=== PATIENT | female | born 2000 | race Two or more races ===

== ENCOUNTER 2019-09-24 17:09 | Emergency (ER) | payer SELFPAY ==
[~2019-09-24] VITALS: Ht 152.4 cm; Wt 73.5 kg
[2019-09-24 17:19] VITALS: BP 155/102
[2019-09-24] MEDS ORDERED: cefTRIAXone SOD 1,000 MG VL IM ONE (17:30)
== END 2019-09-24 17:54 | disposition home or self-care (01) ==
LOC: ER 17:09
DX: S60.562D Insect bite (nonvenomous) of left hand, subsequent encounter (principal); B96.89 Other specified bacterial agents as the cause of diseases classified elsewhere; M79.642 Pain in left hand
CPT/HCPCS: 96372; 99283; J0696